=== PATIENT | female | born 1970 | race Caucasian/White ===

== ENCOUNTER 2017-09-24 22:36 | Emergency (ER) | payer OTHER ==
[2017-09-24 22:50] VITALS: BMI 34.0
--- NOTE | 2017-09-24 23:02 | PDOC ---
History of Present Illness - General History Source: Patient Exam Limitations: No Limitations - History of Present Illness Initial Comments: 09/25/17 00:30 The patient is a 46 year old female with a significant PMH of bronchitis and mild hyperlipidemia who presents to the emergency department with worsening abdominal pain beginning approximately 3 days ago and 1 episode of vomiting. The patient describes her abdominal pain as a sharp sensation localized in the upper abdomen and epigastric region which was initially intermittent but has become more constant since today. She reports 1 episode of vomiting today but denies diarrhea. She states her last meal was at 4-5PM. The patient also notes about 1 week of upper right sided back pain. She reports taking Advil to minimal relief. The patient denies fevers or chills. The patient denies sick contacts or recent travel. The patient denies chest pain, shortness of breath, headache and dizziness. Denies dysuria, frequency, urgency and hematuria. Allergies: NKA Past surgical history: x3. Right wrist surgery. Bladder surgery. Social history: Social alcohol use. No reported cigarette, alcohol, or drug use. PCP: Dr. To Corona <Blayne Staley - Last Filed: 09/25/17 00:29> - General History Source: Patient Exam Limitations: No Limitations <Caitie Tucker - Last Filed: 09/25/17 01:20> <Madison Denise - Last Filed: 09/26/17 02:03> - General Chief Complaint: Pain Stated Complaint: UPPER ABDOMINAL/BACK PAIN Time Seen by Provider: 09/24/17 23:02 Past History <Blayne Staley - Last Filed: 09/25/17 00:29> - Past Medical History COPD: No Other medical history: Pt denies - Surgical History Abdominal Surgery: Yes - Immunization History Immunization Up to Date: No - Suicide/Smoking/Psychosocial Hx Smoking Status: No Smoking History: Never smoked Have you smoked in the past 12 months: No Number of Cigarettes Smoked Daily: 0 Information on smoking cessation initiated: No Hx Alcohol Use: No Drug/Substance Use Hx: No Substance Use Type: None <Caitie Tucker - Last Filed: 09/25/17 01:20> <Madison Denise - Last Filed: 09/26/17 02:03> - Past Medical History Allergies/Adverse Reactions: Allergies Allergy/AdvReac Type Severity Reaction Status Date / Time No Known Allergies Allergy Verified 09/24/17 22:47 Home Medications: Ambulatory Orders No Home Medications 0 dose .ROUTE UTDICT 11/23/13 Review of Systems - Review of Systems Able to Perform ROS?: Yes Comments:: 09/25/17 00:30 GENERAL/CONSTITUTIONAL: No fever or chills. No weakness. HEAD, EYES, EARS, NOSE AND THROAT: No change in vision. No ear pain or discharge. No sore throat. CARDIOVASCULAR: No chest pain or shortness of breath. RESPIRATORY: No cough, wheezing, or hemoptysis. GASTROINTESTINAL: (+) 1 episode of vomiting. (+) Upper and epigastric abdominal pain. No diarrhea or constipation. GENITOURINARY: No dysuria, frequency, or change in urination. MUSCULOSKELETAL: (+) Upper right sided back pain. No joint or muscle swelling or pain. No neck or back pain. SKIN: No rash NEUROLOGIC: No headache, vertigo, loss of consciousness, or change in strength/ sensation. ENDOCRINE: No increased thirst. No abnormal weight change. HEMATOLOGIC/LYMPHATIC: No anemia, easy bleeding, or history of blood clots. ALLERGIC/IMMUNOLOGIC: No hives or skin allergy. <Blayne Staley - Last Filed: 09/25/17 00:29> *Physical Exam - Vital Signs Last Vital Signs Temp Pulse Resp BP Pulse Ox 98.3 F 84 20 140/104 98 09/24/17 22:47 09/24/17 22:47 09/24/17 22:47 09/24/17 22:47 09/24/17 22:47 - Physical Exam Comments: 09/25/17 00:30 GENERAL: Awake, alert, and fully oriented, in no acute distress HEAD: No signs of trauma EYES: PERRLA, EOMI, sclera anicteric, conjunctiva clear ENT: Auricles normal inspection, hearing grossly normal, nares patent, oropharynx clear without exudates. Moist mucosa NECK: Normal ROM, supple, no lymphadenopathy, JVD, or masses LUNGS: Breath sounds equal, clear to auscultation bilaterally. No wheezes, and no crackles HEART: Regular rate and rhythm, normal S1 and S2, no murmurs, rubs or gallops ABDOMEN: (+) Epigastric and RUQ tenderness. No lower abdominal tenderness. Soft , normoactive bowel sounds. No guarding, no rebound. No masses EXTREMITIES: Normal range of motion, no edema. No clubbing or cyanosis. No cords, erythema, or tenderness NEUROLOGICAL: Cranial nerves II through XII grossly intact. Normal speech, normal gait SKIN: Warm, Dry, normal turgor, no rashes or lesions noted. <Blayne Staley - Last Filed: 09/25/17 00:29> - Vital Signs Last Vital Signs Temp Pulse Resp BP Pulse Ox 98.3 F 84 20 140/104 98 09/24/17 22:47 09/24/17 22:47 09/24/17 22:47 09/24/17 22:47 09/24/17 22:47 <Caitie Tucker - Last Filed: 09/25/17 01:20> - Vital Signs Last Vital Signs Temp Pulse Resp BP Pulse Ox 98.3 F 84 20 140/104 98 09/24/17 22:47 09/24/17 22:47 09/24/17 22:47 09/24/17 22:47 09/24/17 22:47 <Madison Denise - Last Filed: 09/26/17 02:03> ED Treatment Course - LABORATORY CBC & Chemistry Diagram: 09/24/17 23:31 09/24/17 23:31 - ADDITIONAL ORDERS Additional order review: 09/24/17 23:31 RBC 3.67 MCV 92.0 MCHC 35.2 RDW 14.9 MPV 9.1 Neutrophils % 65.9 D Lymphocytes % 25.5 D Monocytes % 7.2 D Eosinophils % 0.7 Basophils % 0.7 - Medications Given in the ED: ED Medications Discontinued Medications Generic Name Dose Route Start Last Admin Trade Name Freq PRN Reason Stop Dose Admin Famotidine/Sodium Chloride 20 mg in 50 mls @ 100 mls/hr 09/24/17 23:50 00:16 Pepcid 20 Mg Premixed Ivpb - IVPB 09/25/17 00:19 100 mls/hr ONCE ONE Administration Morphine Sulfate 4 mg 09/24/17 23:50 09/25/17 00:16 Morphine Injection - IVPUSH 09/24/17 23:51 4 mg ONCE ONE Administration Ondansetron HCl 4 mg 09/24/17 23:50 09/25/17 00:16 Zofran Injection IVPUSH 09/24/17 23:51 4 mg ONCE ONE Administration <Blayne Staley - Last Filed: 09/25/17 00:29> - LABORATORY CBC & Chemistry Diagram: 09/24/17 23:31 09/24/17 23:31 <Caitie Tucker - Last Filed: 09/25/17 01:20> - LABORATORY CBC & Chemistry Diagram: 09/24/17 23:31 09/24/17 23:31 - ADDITIONAL ORDERS Additional order review: Laboratory Results 09/25/17 09/24/17 04:12 23:31 Sodium 140 Potassium 3.7 Chloride 106 Carbon Dioxide 25 Anion Gap 9 BUN 12 Creatinine 0.6 Creat Clearance w eGFR > 60 Random Glucose 121 H Calcium 8.4 L Total Bilirubin 0.3 D AST 15 ALT 16 Alkaline Phosphatase 70 Creatine Kinase 99 Troponin I < 0.02 Total Protein 6.9 Albumin 3.7 Total Amylase 30 Lipase 201 Urine HCG, Qual Negative 09/24/17 23:31 RBC 3.67 MCV 92.0 MCHC 35.2 RDW 14.9 MPV 9.1 Neutrophils % 65.9 D Lymphocytes % 25.5 D Monocytes % 7.2 D Eosinophils % 0.7 Basophils % 0.7 - RADIOLOGY Radiology Studies Ordered: Category Date Time Status SPINE-THORACIC [RAD] Stat Radiology 09/25/17 01:32 Ordered - Medications Given in the ED: ED Medications Discontinued Medications Generic Name Dose Route Start Last Admin Trade Name Freq PRN Reason Stop Dose Admin Famotidine/Sodium Chloride 20 mg in 50 mls @ 100 mls/hr 09/24/17 23:50 00:16 Pepcid 20 Mg Premixed Ivpb - IVPB 09/25/17 00:19 100 mls/hr ONCE ONE Administration Sodium Chloride 1,000 mls @ 1,000 mls/hr 09/24/17 23:50 09/25/17 00:16 Normal Saline - IV 09/25/17 00:49 1,000 mls/hr ASDIR STA Administration Morphine Sulfate 4 mg 09/24/17 23:50 09/25/17 00:16 Morphine Injection - IVPUSH 09/24/17 23:51 4 mg ONCE ONE Administration Ondansetron HCl 4 mg 09/24/17 23:50 09/25/17 00:16 Zofran Injection IVPUSH 09/24/17 23:51 4 mg ONCE ONE Administration <Madison Denise - Last Filed: 09/26/17 02:03> Medical Decision Making - Medical Decision Making 09/24/17 23:55 Ms Avila is a 46-year-old female with a reported history of hyperlipidemia, currently not taking adamant medications who presents emergency department with a complaint of severe abdominal pain as well as back pain. Patient states her abdominal pain began 3 days ago. She describes her pain as sharp, located in the epigastrium, pain is constant. Pain was initially bearable, however over now is unbearable. Patient states she has taken Motrin however this has not helped her anyway. She is nauseous, has vomited. No diarrhea. No fevers or chills. Patient's last meal was this afternoon between 4 - 5 pm Pt has had these symptoms in the past but they are typically self resolve On examination: A&O x 3 RRR CTA abd soft, non distended Epigastric severely tender to palpation, LUQ and RUQ tender to palpation No lower extremity tenderness Will do: labs US CT EKG IVF/Pepcid/Morphine/Zofran Re assess EKG: SR rate of 77 bpm, axis nml, no st elevations or depressions, T waves upright 09/25/17 00:01 Laboratory Tests 09/24/17 23:31 WBC 8.7 D Hgb 11.9 Hct 33.8 Plt Count 231 09/25/17 01:20 Right upper quadrant ultrasound demonstrates: Liver is fatty infiltrated and mildly large. No gallstones, no gallbladder wall thickening, no pericholecystic fluid. Bile duct is 3.1 mm. No hydronephrosis. No free fluid. Will order patient for CT of the abdomen and pelvis. Patient signed out to Dr. Denise <Caitie Tucker - Last Filed: 09/25/17 01:20> - Medical Decision Making 09/25/17 06:48 I received signout on patient. Her CT abd/pelvis was recently done and her results are still pending. Spine XR is pending as well. Pt was having point tenderness over the T-spine. SHe is awaiting XR spine 09/25/17 07:00 I will sign out to ANETTE ROSADO 05/06/18 07:14 Patient Name: SHYAM AVILA THIS IS A PRELIMINARY REPORT FROM [facility] DATE OF SERVICE: 2017-09-25 06:04:41 IMAGES: [id number] EXAM: ABDOMEN \T\ PELVIS CT WITH CONTR HISTORY: Abdominal pain COMPARISON: None. FINDINGS: There is no bowel obstruction, free air, or free fluid. Normal appendix visualized. Negative for diverticulitis or colitis. Normal kidneys urinary tracts and urinary bladder. 1.6 cm right adnexal cyst. 1.7 cm left adnexal cyst. Slightly enlarged liver. Normal spleen. Normal pancreas. Normal adrenal glands. No obvious abnormalities of the gallbladder. Osseous structures are intact. Small hiatal hernia THIS DOCUMENT HAS BEEN ELECTRONICALLY SIGNED Now only spine CT scan pending <Madison Denise - Last Filed: 09/26/17 02:03> *DC/Admit/Observation/Transfer - Attestations Scribe Attestion: 09/25/17 00:30 Documentation prepared by Blayne Staley, acting as medical review specialist for Caitie Tucker MD. <Blayne Staley - Last Filed: 09/25/17 00:29> <Caitie Tucker - Last Filed: 09/25/17 01:20> <Madison Denise - Last Filed: 09/26/17 02:03> Diagnosis at time of Disposition: Degenerative joint disease, Abdominal pain, Fatty liver - Discharge Dispostion Disposition: HOME Condition at time of disposition: Stable - Referrals Referrals: Honorio Cardoso MD [Staff Physician] - Josué Damon MD, FAANS [Staff Physician] - To Corona [Primary Care Provider] - Babak Anders MD [Staff Physician] - Alexy Bocanegra MD, MD [Staff Physician] - - Patient Instructions Printed Discharge Instructions: DI for Abdominal Pain-Adult, Nonalcoholic Fatty Liver Disease, DI for Thoracic Back Pain Additional Instructions: Please make an appointment to see your PMD. Please also follow up with the GI specialist and the editor map. Please follow up with the back specialist. Please return to the ED with any further complaints. Please take the advil for pain with food. Please avoid dairy products at this time. Print Language: YORUBA
[2017-09-24] MEDS ORDERED: FAMOTIDINE 20 MG/50 ML IVPB 20 MG/50 ML MG IVPB ONE ×2 (23:50→23:59)
[2017-09-24] MEDS ORDERED: SODIUM CHLORIDE 1,000 ML IV STA (23:50)
[2017-09-24] MEDS ORDERED: morphine CARPU-JECT 4 MG/1 ML DISP.SYRIN IVPUSH ONE (23:50)
[2017-09-24] MEDS ORDERED: ONDANSETRON 4 MG/2 ML VIAL IVPUSH ONE (23:50)
[2017-09-24 23:57] LABS: BASO % 0.7 % (0-2.0); EOS % 0.7 % (0-4.5); HEMATOCRIT 33.8 % (32.4-45.2); HEMOGLOBIN 11.9 GM/dL (10.7-15.3); LYMPH % 25.5 % (8-40); MCH 32.3 pg (25.7-33.7); MCHC 35.2 g/dl (32.0-36.0); MEAN PLT VOLUME 9.1 fl (7.5-11.1); MONO % 7.2 % (3.8-10.2); NEUT % 65.9 % (42.8-82.8); PLATELET COUNT 231 K/MM3 (134-434); RBC 3.67 M/mm3 (3.60-5.2); RDW 14.9 % (11.6-15.6); WHITE BLOOD COUNT 8.7 K/mm3 (4.0-10.0)
[2017-09-24] MEDS ORDERED: morphine SULFATE 4 MG/ML VIAL ONE (23:59)
[2017-09-24] MEDS ORDERED: ONDANSETRON 4 MG/2 ML VIAL ONE (23:59)
[2017-09-25 00:36] LABS: ALBUMIN 3.7 g/dl (3.4-5.0); ALK PHOS 70 U/L (45-117); AMYLASE 30 U/L (25-115); BILIRUBIN,TOTAL 0.3 mg/dL (0.2-1.0); BLOOD UREA NITROGEN 12 mg/dL (7-18); CALCIUM 8.4 mg/dL (8.5-10.1); CO2 25 mmol/L (21-32); CREATININE 0.6 mg/dL (0.55-1.02); GLUCOSE,RANDOM 121 mg/dL (74-106); SGOT/AST 15 U/L (15-37); SGPT/ALT 16 U/L (12-78); TOT PROT 6.9 g/dl (6.4-8.2)
[2017-09-25 00:55] LABS: LIPASE 201 U/L (73-393)
[2017-09-25 01:19] LABS: ANION GAP 9 (8-16); CHLORIDE 106 mmol/L (98-107); POTASSIUM 3.7 mmol/L (3.5-5.1); SODIUM 140 mmol/L (136-145)
[2017-09-25] MEDS ORDERED: SIMETHICONE 40 MG/0.6 ML BOTTLE PO ONE (07:20)
--- NOTE | 2017-09-25 10:20 | PDOC ---
*Physical Exam - Vital Signs Last Vital Signs Temp Pulse Resp BP Pulse Ox 97.6 F 61 12 124/73 97 09/25/17 06:51 09/25/17 06:51 09/25/17 06:51 09/25/17 06:51 09/25/17 07:47 - Physical Exam Comments: 09/25/17 10:14 Gen: aaox3, nad heart: +s1s2 reg Lungs: cta b/l abd: soft, nt/nd +bs Ext: no c/c/e ED Treatment Course - LABORATORY CBC & Chemistry Diagram: 09/24/17 23:31 09/24/17 23:31 - ADDITIONAL ORDERS Additional order review: Laboratory Results 09/25/17 09/24/17 04:12 23:31 Sodium 140 Potassium 3.7 Chloride 106 Carbon Dioxide 25 Anion Gap 9 BUN 12 Creatinine 0.6 Creat Clearance w eGFR > 60 Random Glucose 121 H Calcium 8.4 L Total Bilirubin 0.3 D AST 15 ALT 16 Alkaline Phosphatase 70 Creatine Kinase 99 Troponin I < 0.02 Total Protein 6.9 Albumin 3.7 Total Amylase 30 Lipase 201 Urine HCG, Qual Negative 09/24/17 23:31 RBC 3.67 MCV 92.0 MCHC 35.2 RDW 14.9 MPV 9.1 Neutrophils % 65.9 D Lymphocytes % 25.5 D Monocytes % 7.2 D Eosinophils % 0.7 Basophils % 0.7 - Medications Given in the ED: ED Medications Discontinued Medications Generic Name Dose Route Start Last Admin Trade Name Freq PRN Reason Stop Dose Admin Famotidine/Sodium Chloride 20 mg in 50 mls @ 100 mls/hr 09/24/17 23:50 00:16 Pepcid 20 Mg Premixed Ivpb - IVPB 09/25/17 00:19 100 mls/hr ONCE ONE Administration Sodium Chloride 1,000 mls @ 1,000 mls/hr 09/24/17 23:50 09/25/17 00:16 Normal Saline - IV 09/25/17 00:49 1,000 mls/hr ASDIR STA Administration Morphine Sulfate 4 mg 09/24/17 23:50 09/25/17 00:16 Morphine Injection - IVPUSH 09/24/17 23:51 4 mg ONCE ONE Administration Ondansetron HCl 4 mg 09/24/17 23:50 09/25/17 00:16 Zofran Injection IVPUSH 09/24/17 23:51 4 mg ONCE ONE Administration Simethicone 80 mg 09/25/17 07:20 09/25/17 08:48 Mylicon Liquid - PO 09/25/17 07:21 80 mg ONCE ONE Administration Medical Decision Making - Medical Decision Making 09/25/17 10:14 a/p: 46yo female with epigastric pain and back pain -pt signed out by the night team pending ct abd/pelvis, u/s abd, and back xray -spine xray shows wedging with degenerative changes -u/s and ct show fatty liver, ovarian cyst b/l, but no acute intraabd pathology -these findings were discussed with the patient along with her lab work -pt recently treated with prednisone, is taking advil for back pain and treated for FLU. still using inhaler - cough improved -suspect GI pain from steroids and nsaids. also states drinking milk which upsets her stomach - discussed following up with the GI specialist, taking advil with food and iwth meals. recommended follow up with SPINE sx, also needs eval by pulm. States she follows at [facility] for PMD. Answered all questions. pt stable for d/c to home discussed all reasons to return to the ED and need for follow up pt requesting to go home. *DC/Admit/Observation/Transfer Diagnosis at time of Disposition: Degenerative joint disease, Abdominal pain, Fatty liver - Discharge Dispostion Disposition: HOME Condition at time of disposition: Stable Admit: No - Referrals Referrals: To Corona [Primary Care Provider] - Babak Anders MD [Staff Physician] - Honorio Cardoso MD [Staff Physician] - Josué Damon MD, FAANS [Staff Physician] - - Patient Instructions Printed Discharge Instructions: DI for Abdominal Pain-Adult, Nonalcoholic Fatty Liver Disease, DI for Thoracic Back Pain Additional Instructions: Please make an appointment to see your PMD. Please also follow up with the GI specialist and the corporate ethics officer. Please follow up with the back specialist. Please return to the ED with any further complaints. Please take the advil for pain with food. Please avoid dairy products at this time. - Post Discharge Activity - Attestations Physician Attestion: 09/25/17 10:24 Dr. Melody Darbyki, DO, attest that this document has been prepared under my direction and personally reviewed by me in its entirety. I further attest, that it accurately reflects all work, treatment, procedures and medical decision -making performed by me.
[2017-09-25 10:58] VITALS: BP 125/75; PULSE 68; TEMP 97.8
--- NOTE | 2017-09-25 14:30 | EKG ---
Test Reason : Blood Pressure : / mmHG Vent. Rate : 077 BPM Atrial Rate : 077 BPM P-R Int : 154 ms QRS Dur : 084 ms QT Int : 402 ms P-R-T Axes : 056 -10 010 degrees QTc Int : 454 ms SINUS RHYTHM WITH OCCASIONAL PREMATURE VENTRICULAR COMPLEXES OTHERWISE NORMAL ECG NO PREVIOUS ECGS AVAILABLE Confirmed by MD Ron, Samir ([id number]) on 09/25/2017 2:30:26 PM Referred By: Confirmed By:Samir Velasquez MD
== END 2017-09-25 10:45 | disposition home or self-care (01) ==
LOC: JER 22:36
PROC: 3E033GC Introduction of Other Therapeutic Substance into Peripheral Vein, Percutaneous Approach (ICD-10-PCS; principal; 2017-09-24)
PROC: 3E033GC Introduction of Other Therapeutic Substance into Peripheral Vein, Percutaneous Approach (ICD-10-PCS; 2017-09-24)
PROC: 3E033NZ Introduction of Analgesics, Hypnotics, Sedatives into Peripheral Vein, Percutaneous Approach (ICD-10-PCS; 2017-09-24)
DX: R10.13 Epigastric pain (principal); M51.34 Other intervertebral disc degeneration, thoracic region; K76.0 Fatty (change of) liver, not elsewhere classified
CPT/HCPCS: 36415; 72070-TC-FY; 74177-TC; 76705-TC; 80053; 82150; 82550; 83690; 84484; 84703; 85025; 93005; 93010; 96365; 96375; 99284-25; J7030

== ENCOUNTER 2020-05-28 16:06 | Inpatient (IN) | payer OTHER ==
[2020-05-28] MEDS ORDERED: SODIUM CHLORIDE 1,000 ML IV STA (17:07)
[2020-05-28] MEDS ORDERED: ACETAMINOPHEN 1000 MG/100 ML BAG IVPB ONE (17:21)
[2020-05-28] MEDS ORDERED: FAMOTIDINE 20 MG/50 ML IVPB 20 MG/50 ML MG IVPB ONE ×2 (17:21→17:36)
[2020-05-28] MEDS ORDERED: ONDANSETRON 4 MG/2 ML VIAL IVPUSH ONE (17:21)
[2020-05-28] MEDS ORDERED: DEXAMETHASONE SOD PHOSPHATE 4 MG/1 ML VIAL IVPUSH ONE (17:32)
[2020-05-28] MEDS ORDERED: ONDANSETRON 4 MG/2 ML VIAL ONE (17:36)
[2020-05-28] MEDS ORDERED: ACETAMINOPHEN INJECTION 100 ML IVPB ONE (17:36)
[2020-05-28 17:55] LABS: BASO % 0.1 % (0-2.0); HEMATOCRIT 35.8 % (32.4-45.2); HEMOGLOBIN 12.3 GM/dL (10.7-15.3); LYMPH % 15.7 % (8-40); MCH 31.5 pg (25.7-33.7); MCHC 34.5 g/dl (32.0-36.0); MEAN CELL VOLUME 91.5 fl (80-96); MEAN PLT VOLUME 8.3 fl (7.5-11.1); MONO % 5.4 % (3.8-10.2); NEUT % 78.8 % (42.8-82.8); PLATELET COUNT 297 K/MM3 (134-434); RBC 3.91 M/mm3 (3.60-5.2); RDW 14.2 % (11.6-15.6); WHITE BLOOD COUNT 9.1 K/mm3 (4.0-10.0)
[2020-05-28 18:06] LABS: CHLORIDE 107 mmol/L (98-107); SODIUM 137 mmol/L (136-145)
[2020-05-28 18:08] LABS: ALBUMIN 3.4 g/dl (3.4-5.0); ANION GAP 7 MMOL/L (8-16); CO2 23 mmol/L (21-32); GLUCOSE,RANDOM 104 mg/dL (74-106); LIPASE 274 U/L (73-393); MAGNESIUM 2.2 mg/dL (1.8-2.4)
[2020-05-28 18:11] LABS: CREATININE 0.8 mg/dL (0.55-1.3); SGOT/AST 74 U/L (15-37); SGPT/ALT 63 U/L (13-61)
[2020-05-28 18:12] LABS: BILIRUBIN,TOTAL 1.1 mg/dL (0.2-1); TOT PROT 7.4 g/dl (6.4-8.2)
[2020-05-28 18:14] LABS: ALK PHOS 88 U/L (45-117)
[2020-05-28] MEDS ORDERED: DEXAMETHASONE SOD PHOSPHATE 4 MG/1 ML VIAL ONE (18:37)
[2020-05-28] MEDS ORDERED: ALBUTEROL SO4 HFA INHALER IH PRN ×2 (20:24→20:25)
[2020-05-28] MEDS ORDERED: CHOLECALCIFEROL (VIT D3) 1,000 UNIT (25 MCG) TABLET ONE (21:12)
[2020-05-28] MEDS ORDERED: ENOXAPARIN NA (PORCINE) 40 MG/0.4 ML DISP.SYRIN SQ ONE (21:12)
[2020-05-28] MEDS ORDERED: FAMOTIDINE 20 MG TABLET ONE (21:12)
[2020-05-28] MEDS ORDERED: ASCORBIC ACID 500 MG TABLET (FP) ONE (21:12)
[2020-05-28] MEDS: CHOLECALCIFEROL (VIT D3) 1,000 UNIT (25 MCG) TABLET PO SCH (21:22)
[2020-05-28] MEDS: FAMOTIDINE 20 MG TABLET PO SCH (21:22)
[2020-05-28] MEDS: ASCORBIC ACID 500 MG TABLET (FP) PO SCH ×2 (21:22→22:30)
[2020-05-28] MEDS ORDERED: ZINC SULFATE 220 MG CAPSULE (FP) ONE (21:24)
[2020-05-28] MEDS: ENOXAPARIN NA (PORCINE) 40 MG/0.4 ML DISP.SYRIN SQ SCH (21:33)
[2020-05-28] MEDS: ZINC SULFATE 220 MG CAPSULE (FP) PO SCH (21:33)
[2020-05-28] MEDS ORDERED: AZITHROMYCIN IVPB 500 MG/250 ML BAG IVPB ONE ×2 (22:17→23:28)
[2020-05-29] MEDS ORDERED: BENZOCAINE/MENTH/CETYLPYRD CL 1 EACH LOZENGE MM ONE (02:05)
[2020-05-29] MEDS: BENZOCAINE/MENTH/CETYLPYRD CL 1 EACH LOZENGE MM PRN ×2 (02:08→03:35)
[2020-05-29 06:23] LABS: EPI CELLS 17 /uL (0-25.1); HYALINE CASTS 0 /uL (0-3.1); PH,URINE 6.5 (5.0-8.0); URINE APPEARANCE CLEAR; URINE BACTERIA 78 /uL (0-1359); URINE BILIRUBIN NEGATIVE (NEGATIVE); URINE COLOR YELLOW; URINE GLUCOSE (UA) 3+ (NEGATIVE); URINE KETONE 1+ (NEGATIVE); URINE LEUK ESTERASE NEGATIVE (NEGATIVE); URINE NITRITE NEGATIVE (NEGATIVE); URINE PROTEIN 1+ (NEGATIVE); URINE RBC 8 /uL (0-23.9); URINE UROBILINOGEN 0.2 mg/dL (0.2-1.0); URINE WBC 12 /uL (0-25.8)
[2020-05-29 07:32] LABS: BASO % 0.1 % (0-2.0); LYMPH % 10.4 % (8-40); MCH 31.3 pg (25.7-33.7); MCHC 34.4 g/dl (32.0-36.0); MONO % 3.8 % (3.8-10.2); NEUT % 85.7 % (42.8-82.8); PLATELET COUNT 331 K/MM3 (134-434); RBC 3.84 M/mm3 (3.60-5.2); RDW 14.5 % (11.6-15.6); WHITE BLOOD COUNT 9.1 K/mm3 (4.0-10.0)
[2020-05-29 07:34] LABS: INR 1.24 (0.83-1.09); PROTHROMBIN TIME (PATIENT) 15.2 SEC (9.7-13.0)
[2020-05-29 07:36] LABS: ACTIVATED PTT 32.6 SECONDS (25.2-36.5)
[2020-05-29 07:51] LABS: CALCIUM 7.8 mg/dL (8.5-10.1)
[2020-05-29 07:52] LABS: ALBUMIN 3.1 g/dl (3.4-5.0); BLOOD UREA NITROGEN 9.7 mg/dL (7-18); MAGNESIUM 2.4 mg/dL (1.8-2.4)
[2020-05-29 07:55] LABS: CREATININE 0.6 mg/dL (0.55-1.3); PHOSPHOROUS 2.2 mg/dL (2.5-4.9)
[2020-05-29 07:56] LABS: BILIRUBIN,TOTAL 0.9 mg/dL (0.2-1)
[2020-05-29 07:57] LABS: TOT PROT 6.8 g/dl (6.4-8.2)
[2020-05-29] MEDS: INSULIN SLIDING SCALE (NOVOLOG) 1 VIAL SQ SCH ×4 (08:05→22:49)
[2020-05-29] MEDS ORDERED: CEFTRIAXONE 1 GM in DEXTROSE 5%-WATER - 50 ML IVPB SCH (10:00)
[2020-05-29] MEDS ORDERED: DEXAMETHASONE SOD PHOSPHATE 10 MG/1 ML VIAL ONE (10:11)
[2020-05-29] MEDS ORDERED: ASCORBIC ACID 500 MG TABLET (FP) ONE ×2 (10:11→22:31)
[2020-05-29] MEDS ORDERED: ZINC SULFATE 220 MG CAPSULE (FP) ONE (10:11)
[2020-05-29] MEDS ORDERED: FAMOTIDINE 20 MG TABLET ONE ×2 (10:11→22:31)
[2020-05-29] MEDS ORDERED: CHOLECALCIFEROL (VIT D3) 1,000 UNIT (25 MCG) TABLET ONE (10:12)
[2020-05-29] MEDS ORDERED: CEFTRIAXONE 1 GM/50 ML BAG ONE (10:12)
[2020-05-29] MEDS ORDERED: ENOXAPARIN NA (PORCINE) 40 MG/0.4 ML DISP.SYRIN SQ ONE (10:12)
[2020-05-29] MEDS: ASCORBIC ACID 500 MG TABLET (FP) PO SCH ×2 (10:13→22:43)
[2020-05-29] MEDS: ENOXAPARIN NA (PORCINE) 40 MG/0.4 ML DISP.SYRIN SQ SCH (10:13)
[2020-05-29] MEDS: ZINC SULFATE 220 MG CAPSULE (FP) PO SCH (10:13)
[2020-05-29] MEDS: DEXAMETHASONE SOD PHOSPHATE 4 MG/1 ML VIAL IVPB SCH (10:13)
[2020-05-29] MEDS: CHOLECALCIFEROL (VIT D3) 1,000 UNIT (25 MCG) TABLET PO SCH (10:13)
[2020-05-29] MEDS: FAMOTIDINE 20 MG TABLET PO SCH ×2 (10:13→22:43)
[2020-05-29] MEDS ORDERED: ALBUTEROL SO4 HFA INHALER IH ONE (10:23)
[2020-05-29] MEDS ORDERED: REMDESIVIR 200 MG in SODIUM CHLORIDE 210 ML IVPB ONE (12:00)
[2020-05-29] MEDS: ALBUTEROL SO4 HFA INHALER IH SCH ×3 (13:23→22:43)
[2020-05-29] MEDS: NAPH,MB-DB/K PH,MBDB POWDER PACKET PO SCH ×2 (16:37→22:43)
[2020-05-29] MEDS ORDERED: NAPH,MB-DB/K PH,MBDB POWDER PACKET ONE ×2 (16:38→22:31)
[2020-05-29] MEDS ORDERED: PANTOPRAZOLE 40 MG TABLET ONE (17:06)
[2020-05-29] MEDS: PANTOPRAZOLE 40 MG TABLET PO SCH (17:21)
[2020-05-30] MEDS ORDERED: INSULIN (NOVOLOG) ASPART 100 UNITS/ML 10ML VIAL ONE (06:26)
[2020-05-30] MEDS: INSULIN SLIDING SCALE (NOVOLOG) 1 VIAL SQ SCH ×3 (06:33→19:33)
[2020-05-30 07:48] LABS: BASO % 0.1 % (0-2.0); HEMOGLOBIN 11.5 GM/dL (10.7-15.3); LYMPH % 11.9 % (8-40); MCH 31.7 pg (25.7-33.7); MEAN CELL VOLUME 90.7 fl (80-96); MONO % 5.6 % (3.8-10.2); NEUT % 82.4 % (42.8-82.8); PLATELET COUNT 404 K/MM3 (134-434); RBC 3.64 M/mm3 (3.60-5.2); RDW 14.4 % (11.6-15.6)
[2020-05-30 08:17] LABS: TOT PROT 6.7 g/dl (6.4-8.2)
[2020-05-30 08:19] LABS: BILIRUBIN,TOTAL 0.3 mg/dL (0.2-1)
[2020-05-30 08:22] LABS: BLOOD UREA NITROGEN 15.9 mg/dL (7-18); PHOSPHOROUS 3.1 mg/dL (2.5-4.9)
[2020-05-30 08:24] LABS: CALCIUM 7.9 mg/dL (8.5-10.1); CREATININE 0.7 mg/dL (0.55-1.3); MAGNESIUM 2.3 mg/dL (1.8-2.4)
[2020-05-30] MEDS: ENOXAPARIN NA (PORCINE) 40 MG/0.4 ML DISP.SYRIN SQ SCH (10:01)
[2020-05-30] MEDS: ASCORBIC ACID 500 MG TABLET (FP) PO SCH ×2 (10:02→21:39)
[2020-05-30] MEDS: PANTOPRAZOLE 40 MG TABLET PO SCH (10:02)
[2020-05-30] MEDS: ZINC SULFATE 220 MG CAPSULE (FP) PO SCH (10:02)
[2020-05-30] MEDS: FAMOTIDINE 20 MG TABLET PO SCH ×2 (10:02→21:39)
[2020-05-30] MEDS: DEXAMETHASONE SOD PHOSPHATE 4 MG/1 ML VIAL IVPB SCH (10:03)
[2020-05-30] MEDS: ALBUTEROL SO4 HFA INHALER IH SCH ×4 (10:03→21:40)
[2020-05-30] MEDS: CHOLECALCIFEROL (VIT D3) 1,000 UNIT (25 MCG) TABLET PO SCH (10:03)
[2020-05-30 10:07] LABS: ERYTHROCYTE SEDIMENTATION RATE 56 mm/hr (0-20)
[2020-05-30] MEDS: guaiFENesin 600 MG TABLET.ER (FP) PO SCH ×2 (12:04→21:39)
[2020-05-30] MEDS: BUDESONIDE/FORMETEROL FUMARATE 80/4.5 mcg INHALER IH SCH ×2 (12:05→21:40)
[2020-05-30] MEDS: REMDESIVIR 100 MG in SODIUM CHLORIDE 230 ML IVPB SCH (14:01)
[2020-05-31] MEDS: INSULIN SLIDING SCALE (NOVOLOG) 1 VIAL SQ SCH ×3 (07:36→17:06)
[2020-05-31 08:18] LABS: BASO % 0.1 % (0-2.0); HEMATOCRIT 33.5 % (32.4-45.2); HEMOGLOBIN 11.5 GM/dL (10.7-15.3); LYMPH % 16.2 % (8-40); MCH 31.3 pg (25.7-33.7); MCHC 34.4 g/dl (32.0-36.0); MEAN PLT VOLUME 7.9 fl (7.5-11.1); MONO % 8.3 % (3.8-10.2); NEUT % 75.4 % (42.8-82.8); PLATELET COUNT 441 K/MM3 (134-434); RBC 3.68 M/mm3 (3.60-5.2); RDW 14.6 % (11.6-15.6); WHITE BLOOD COUNT 9.3 K/mm3 (4.0-10.0)
[2020-05-31 08:34] LABS: ALBUMIN 2.9 g/dl (3.4-5.0); BLOOD UREA NITROGEN 18.4 mg/dL (7-18)
[2020-05-31 08:35] LABS: MAGNESIUM 2.4 mg/dL (1.8-2.4)
[2020-05-31 08:37] LABS: CREATININE 0.8 mg/dL (0.55-1.3); PHOSPHOROUS 3.2 mg/dL (2.5-4.9)
[2020-05-31 08:38] LABS: BILIRUBIN,TOTAL 0.3 mg/dL (0.2-1); TOT PROT 6.4 g/dl (6.4-8.2)
[2020-05-31] MEDS: ENOXAPARIN NA (PORCINE) 40 MG/0.4 ML DISP.SYRIN SQ SCH (09:56)
[2020-05-31] MEDS: ASCORBIC ACID 500 MG TABLET (FP) PO SCH ×2 (09:57→21:24)
[2020-05-31] MEDS: BUDESONIDE/FORMETEROL FUMARATE 80/4.5 mcg INHALER IH SCH ×2 (09:57→21:28)
[2020-05-31] MEDS: CHOLECALCIFEROL (VIT D3) 1,000 UNIT (25 MCG) TABLET PO SCH (09:57)
[2020-05-31] MEDS: ZINC SULFATE 220 MG CAPSULE (FP) PO SCH (09:57)
[2020-05-31] MEDS: guaiFENesin 600 MG TABLET.ER (FP) PO SCH ×2 (09:57→21:24)
[2020-05-31] MEDS: FAMOTIDINE 20 MG TABLET PO SCH ×2 (09:57→21:24)
[2020-05-31] MEDS: ALBUTEROL SO4 HFA INHALER IH SCH ×4 (09:57→21:28)
[2020-05-31] MEDS: DEXAMETHASONE SOD PHOSPHATE 4 MG/1 ML VIAL IVPB SCH (09:57)
[2020-05-31] MEDS: DOCUSATE SODIUM 100 MG CAPSULE (FP) PO SCH ×2 (13:18→21:24)
[2020-05-31] MEDS: REMDESIVIR 100 MG in SODIUM CHLORIDE 230 ML IVPB SCH (13:18)
[2020-05-31 15:45] VITALS: BMI 32.5
[2020-06-01] MEDS: INSULIN SLIDING SCALE (NOVOLOG) 1 VIAL SQ SCH ×3 (06:07→17:42)
[2020-06-01 07:58] LABS: BLOOD UREA NITROGEN 18.4 mg/dL (7-18); CALCIUM 8.4 mg/dL (8.5-10.1)
[2020-06-01 08:02] LABS: CREATININE 0.7 mg/dL (0.55-1.3)
[2020-06-01 08:03] LABS: BILIRUBIN,TOTAL 0.6 mg/dL (0.2-1); TOT PROT 6.5 g/dl (6.4-8.2)
[2020-06-01] MEDS: ENOXAPARIN NA (PORCINE) 40 MG/0.4 ML DISP.SYRIN SQ SCH (11:29)
[2020-06-01] MEDS: ASCORBIC ACID 500 MG TABLET (FP) PO SCH ×2 (11:30→21:31)
[2020-06-01] MEDS: guaiFENesin 600 MG TABLET.ER (FP) PO SCH ×2 (11:30→21:31)
[2020-06-01] MEDS: FAMOTIDINE 20 MG TABLET PO SCH ×2 (11:30→21:31)
[2020-06-01] MEDS: CHOLECALCIFEROL (VIT D3) 1,000 UNIT (25 MCG) TABLET PO SCH (11:31)
[2020-06-01] MEDS: ZINC SULFATE 220 MG CAPSULE (FP) PO SCH (11:31)
[2020-06-01] MEDS: DEXAMETHASONE SOD PHOSPHATE 4 MG/1 ML VIAL IVPB SCH (11:31)
[2020-06-01] MEDS: BUDESONIDE/FORMETEROL FUMARATE 80/4.5 mcg INHALER IH SCH ×2 (11:32→21:31)
[2020-06-01] MEDS: ALBUTEROL SO4 HFA INHALER IH SCH ×4 (11:32→21:31)
[2020-06-01] MEDS: DOCUSATE SODIUM 100 MG CAPSULE (FP) PO SCH ×2 (11:32→21:31)
[2020-06-01] MEDS: REMDESIVIR 100 MG in SODIUM CHLORIDE 230 ML IVPB SCH (11:45)
[2020-06-01] MEDS ORDERED: INSULIN (NOVOLOG) ASPART 100 UNITS/ML 10ML VIAL ONE (18:30)
[2020-06-02] MEDS: INSULIN SLIDING SCALE (NOVOLOG) 1 VIAL SQ SCH ×3 (06:53→17:32)
[2020-06-02 09:05] LABS: ALBUMIN 3.1 g/dl (3.4-5.0); BILIRUBIN,DIRECT 0.2 mg/dL (0.0-0.2)
[2020-06-02 09:07] LABS: BILIRUBIN,TOTAL 0.4 mg/dL (0.2-1); TOT PROT 6.5 g/dl (6.4-8.2)
[2020-06-02] MEDS: CHOLECALCIFEROL (VIT D3) 1,000 UNIT (25 MCG) TABLET PO SCH (09:20)
[2020-06-02] MEDS: DOCUSATE SODIUM 100 MG CAPSULE (FP) PO SCH (09:20)
[2020-06-02] MEDS: ZINC SULFATE 220 MG CAPSULE (FP) PO SCH (09:20)
[2020-06-02] MEDS: guaiFENesin 600 MG TABLET.ER (FP) PO SCH (09:20)
[2020-06-02] MEDS: BUDESONIDE/FORMETEROL FUMARATE 80/4.5 mcg INHALER IH SCH (09:21)
[2020-06-02] MEDS: ALBUTEROL SO4 HFA INHALER IH SCH ×2 (09:21→13:44)
[2020-06-02] MEDS: ENOXAPARIN NA (PORCINE) 40 MG/0.4 ML DISP.SYRIN SQ SCH (09:21)
[2020-06-02] MEDS: DEXAMETHASONE SOD PHOSPHATE 4 MG/1 ML VIAL IVPB SCH (09:21)
[2020-06-02] MEDS: FAMOTIDINE 20 MG TABLET PO SCH (09:21)
[2020-06-02] MEDS: ASCORBIC ACID 500 MG TABLET (FP) PO SCH (11:48)
[2020-06-02 13:33] VITALS: BP 118/60; PULSE 18; TEMP 98.2
== END 2020-06-02 18:19 | disposition home or self-care (01) | DRG 137 ==
LOC: JER 16:06 → JERBED 20:56 → J7W 05-30 02:42
PROVIDERS: ADMIT Internal Medicine; ATTEND Internal Medicine
PROC: XW033E5 Introduction of Remdesivir Anti-infective into Peripheral Vein, Percutaneous Approach, New Technology Group 5 (ICD-10-PCS; principal; 2020-05-29)
PROC: XW13325 Transfusion of Convalescent Plasma (Nonautologous) into Peripheral Vein, Percutaneous Approach, New Technology Group 5 (ICD-10-PCS; 2020-05-29)
DX: U07.1 COVID-19 (principal); J96.01 Acute respiratory failure with hypoxia; J12.82 Pneumonia due to coronavirus disease 2019; E83.39 Other disorders of phosphorus metabolism; M41.9 Scoliosis, unspecified; I10 Essential (primary) hypertension; E78.5 Hyperlipidemia, unspecified; J45.909 Unspecified asthma, uncomplicated; E66.9 Obesity, unspecified; Z68.32 Body mass index [BMI] 32.0-32.9, adult; R74.01 Elevation of levels of liver transaminase levels; K21.9 Gastro-esophageal reflux disease without esophagitis; K44.9 Diaphragmatic hernia without obstruction or gangrene
CPT/HCPCS: 36415; 36430; 71045-TC-FY; 80053; 80061; 80076; 81003; 82728; 82962; 83036; 83615; 83690; 83721; 83735; 84100; 84484; 84703; 85025; 85379; 85610; 85651; 85730; 86140; 86769; 86850; 86900; 86901; 87040; 87086; 87804; 87899; 93005; 93010; 94761; 99285-25; C9399; C9803; J0131; P9017; U0003

== ENCOUNTER 2023-05-13 17:33 | Emergency (ER) | payer OTHER ==
[2023-05-13 17:42] VITALS: BP 127/74; PULSE 100; RESP 20; TEMP 98.2; BMI 31.8
[2023-05-13 19:20] LABS: BASO % 1.2 % (0-2.0); EOS % 0.4 % (0-4.5); HEMATOCRIT 40.2 % (32.4-45.2); HEMOGLOBIN 13.5 GM/dL (10.7-15.3); LYMPH % 16.4 % (8-40); MCH 30.2 pg (25.7-33.7); MCHC 33.6 g/dl (32.0-36.0); MEAN CELL VOLUME 90.1 fl (80-96); MEAN PLT VOLUME 9.3 fl (7.5-11.1); PLATELET COUNT 254 10^3/uL (134-434); RBC 4.46 M/mm3 (3.60-5.2); RDW 14.6 % (11.6-15.6); WHITE BLOOD COUNT 13.8 K/mm3 (4.0-10.0)
[2023-05-13 19:24] LABS: HCG,QUALITATIVE URINE Negative
[2023-05-13 19:25] LABS: EPI CELLS 2 /uL (0-25.1); HYALINE CASTS 0 /uL (0-3.1); URINE APPEARANCE CLOUDY; URINE BACTERIA 113 /uL (0-1359); URINE BILIRUBIN NEGATIVE (NEGATIVE); URINE COLOR YELLOW; URINE GLUCOSE (UA) NEGATIVE (NEGATIVE); URINE KETONE NEGATIVE (NEGATIVE); URINE LEUK ESTERASE 2+ (NEGATIVE); URINE NITRITE NEGATIVE (NEGATIVE); URINE PROTEIN 2+ (NEGATIVE); URINE RBC 1593 /uL (0-23.9); URINE UROBILINOGEN 0.2 mg/dL (0.2-1.0); URINE WBC 1626 /uL (0-25.8)
[2023-05-13 19:26] LABS: INR 1.17 (0.83-1.09); PROTHROMBIN TIME (PATIENT) 13.5 SEC (9.7-13.0)
[2023-05-13 20:14] LABS: POTASSIUM 3.9 mmol/L (3.5-5.1)
[2023-05-13 20:16] LABS: CALCIUM 9.6 mg/dL (8.5-10.1)
[2023-05-13 20:17] LABS: ALBUMIN 4.2 g/dl (3.4-5.0)
[2023-05-13 20:20] LABS: CREATININE 0.9 mg/dL (0.55-1.3)
[2023-05-13 20:21] LABS: TOT PROT 7.6 g/dl (6.4-8.2)
[2023-05-13 20:22] LABS: BILIRUBIN,TOTAL 0.4 mg/dL (0.2-1)
[2023-05-13] MEDS ORDERED: NITROFURANTOIN MONOHYD/M-CRYST 100 MG CAPSULE PO ONE (20:32)
[2023-05-13] MEDS ORDERED: PHENAZOPYRIDINE HCL 100 MG TABLET (FP) PO ONE (20:34)
[2023-05-13] MEDS ORDERED: PHENAZOPYRIDINE HCL 100 MG TABLET (FP) ONE (20:56)
[2023-05-13] MEDS ORDERED: NITROFURANTOIN MACROCRYSTAL 50 MG CAPSULE (FP) ONE (20:56)
== END 2023-05-13 21:18 | disposition home or self-care (01) ==
LOC: JER 17:33
DX: R10.30 Lower abdominal pain, unspecified (principal); R31.9 Hematuria, unspecified; R30.0 Dysuria; N30.01 Acute cystitis with hematuria
CPT/HCPCS: 36415; 80053; 81003; 84703; 85025; 85610; 87086; 87186; 87491; 87591; 87661; 99283-25